=== PATIENT | female | born 1990 ===

== ENCOUNTER 2017-05-16 15:58 | Emergency (ER) | payer OTHER ==
[~2017-05-16] VITALS: Ht 175.3 cm; Wt 71.2 kg
[~2017-05-16 15:58] MED LIST: CLARITIN5 MG/5 ML; KETO10TA2 PO; OMEPRAZOLE40 MG; ZANTAC25 MG/1 ML
== END 2017-05-16 21:41 | disposition home or self-care (01) ==
LOC: ER 15:58
DX: K52.89 Other specified noninfective gastroenteritis and colitis (principal)